=== PATIENT | female | born 1970 | race Caucasian/White ===

== ENCOUNTER 2017-10-06 17:51 | Emergency (ER) | payer SELFPAY ==
--- NOTE | 2017-10-06 17:58 | PDOC ---
History of Present Illness <Keyla Johnson - Last Filed: 10/06/17 18:56> - General History Source: Patient Exam Limitations: No Limitations - History of Present Illness Initial Comments: 10/06/17 20:14 Patient is a 47 year old female with a significant past medical history of Asthma (Related to upper respiratory infections), Fibromyalgia, Herniated disc, who presents to the ED with complaints of increased back pain as well as multiple episodes of vomiting that began 10 yesterday morning. . Patient reports waking up yesterday morning with intense 10/10 back pain as well as nausea. She reports she has experienced 27 episodes of vomiting since yesterday morning with no signs of subsiding. Patient states she tried taking Hydrocodone and Tylenol for back pain with no relief. She reports taking daughters Zofran for nausea and vomiting with minimal relief. Patient states she has been taking care of her daughter with stomach virus since friday morning. Patient reports urinating on herself every time she begins to vomit. Denies chest pain, SOB. Denies fevers, chills. Denies out of state traveling. Denies any other symptoms. Allergies: None Social history: Lives with . Current smoker. No alcohol. No illicit drugs. Surgical history: PMD: None <Ananth Wallace - Last Filed: 10/06/17 20:14> <Elsa Oshea I - Last Filed: 10/07/17 21:51> - General Chief Complaint: Nausea/Vomiting Stated Complaint: VOMITING,BACK PAIN,NAUSEA Time Seen by Provider: 10/06/17 17:58 Past History - Suicide/Smoking/Psychosocial Hx Smoking History: Never smoked Have you smoked in the past 12 months: No Hx Alcohol Use: No Drug/Substance Use Hx: No Substance Use Type: None <Keyla Johnson - Last Filed: 10/06/17 18:56> <Ananth Wallace - Last Filed: 10/06/17 20:14> <Elsa Oshea I - Last Filed: 10/07/17 21:51> - Past Medical History Allergies/Adverse Reactions: Allergies Allergy/AdvReac Type Severity Reaction Status Date / Time No Known Allergies Allergy Verified 10/06/17 18:08 Home Medications: Ambulatory Orders Hydrocodone/Acetaminophen [Hydrocodone-Acetamin 5-325 mg] 0 each PO ASDIR Ondansetron [Zofran Odt -] 4 mg SL TID #12 od.tablet 10/06/17 Review of Systems - Review of Systems Able to Perform ROS?: Yes Comments:: 10/06/17 20:14 GENERAL/CONSTITUTIONAL: No fever or chills. No weakness. HEAD, EYES, EARS, NOSE AND THROAT: No change in vision. No ear pain or discharge. No sore throat. CARDIOVASCULAR: No chest pain or shortness of breath. RESPIRATORY: No cough, wheezing, or hemoptysis. GASTROINTESTINAL: +Nausea. +Vomiting. No diarrhea or constipation. GENITOURINARY: No dysuria, frequency, or change in urination. MUSCULOSKELETAL: +Lower back pain. No joint or muscle swelling or pain. No neck. SKIN: No rash NEUROLOGIC: +headache. No vertigo, loss of consciousness, or change in strength/sensation. ENDOCRINE: No increased thirst. No abnormal weight change. HEMATOLOGIC/LYMPHATIC: No anemia, easy bleeding, or history of blood clots. ALLERGIC/IMMUNOLOGIC: No hives or skin allergy. All Other Systems: Reviewed and Negative <Ananth Wallace - Last Filed: 10/06/17 20:14> *Physical Exam - Vital Signs Last Vital Signs Temp Pulse Resp BP Pulse Ox 99.2 F 98 H 18 121/76 100 10/06/17 17:52 10/06/17 17:52 10/06/17 17:52 10/06/17 17:52 10/06/17 17:52 - Physical Exam Comments: 10/06/17 20:14 GENERAL: +Mild distress. Awake, alert, and fully oriented, HEAD: No signs of trauma EYES: PERRLA, EOMI, sclera anicteric, conjunctiva clear ENT: Auricles normal inspection, hearing grossly normal, nares patent, oropharynx clear without exudates. Moist mucosa NECK: Normal ROM, supple, no lymphadenopathy, JVD, or masses LUNGS: Breath sounds equal, clear to auscultation bilaterally. No wheezes, and no crackles HEART: Regular rate and rhythm, normal S1 and S2, no murmurs, rubs or gallops ABDOMEN: Soft, nontender, normoactive bowel sounds. No guarding, no rebound. No masses BACK: +Paraspinal tenderness in thoracic and lumbar regions with no point tenderness over spine. No CVA tenderness. EXTREMITIES: Normal range of motion, no edema. No clubbing or cyanosis. No cords, erythema, or tenderness NEUROLOGICAL: Cranial nerves II through XII grossly intact. Normal speech, normal gait SKIN: Warm, Dry, normal turgor, no rashes or lesions noted. <Ananth Wallace - Last Filed: 10/06/17 20:14> - Vital Signs Last Vital Signs Temp Pulse Resp BP Pulse Ox 99.2 F 98 H 18 121/76 100 10/06/17 17:52 10/06/17 17:52 10/06/17 17:52 10/06/17 17:52 10/06/17 17:52 <Elsa Oshea I - Last Filed: 10/07/17 21:51> ED Treatment Course - LABORATORY CBC & Chemistry Diagram: 10/06/17 18:40 10/06/17 18:40 <Keyla Johnson - Last Filed: 10/06/17 18:56> - LABORATORY CBC & Chemistry Diagram: 10/06/17 18:40 10/06/17 18:40 - ADDITIONAL ORDERS Additional order review: Laboratory Results 10/06/17 10/06/17 19:50 18:40 Sodium 136 Potassium 3.7 Chloride 102 Carbon Dioxide 24 Anion Gap 10 BUN 19 H Creatinine 0.8 Creat Clearance w eGFR > 60 Random Glucose 98 Calcium 9.2 Total Bilirubin 0.7 D AST 21 ALT 22 D Alkaline Phosphatase 50 Total Protein 6.8 Albumin 4.1 Urine Color Yellow Urine Appearance Clear Urine pH 5.5 Ur Specific Berkley 1.025 Urine Protein Negative Urine Glucose (UA) Negative Urine Ketones 2+ H Urine Blood 1+ H Urine Nitrite Negative Urine Bilirubin Negative Urine Urobilinogen 0.2 Ur Leukocyte Esterase Negative Urine HCG, Qual Negative 10/06/17 18:40 RBC 4.60 MCV 92.9 MCHC 33.6 RDW 11.9 MPV 9.5 D Neutrophils % 88.7 H D Lymphocytes % 5.4 L D Monocytes % 5.3 Eosinophils % 0.4 Basophils % 0.2 - Medications Given in the ED: ED Medications Discontinued Medications Generic Name Dose Route Start Last Admin Trade Name Freq PRN Reason Stop Dose Admin Ketorolac Tromethamine 30 mg 10/06/17 18:42 10/06/17 18:56 Toradol Injection - IVPUSH 10/06/17 18:43 30 mg ONCE ONE Administration Ondansetron HCl 4 mg 10/06/17 18:42 10/06/17 18:56 Zofran Injection IVPUSH 10/06/17 18:43 4 mg ONCE ONE Administration Sodium Chloride 2,000 ml 10/06/17 18:42 10/06/17 18:56 Normal Saline - IV 10/06/17 18:43 2,000 ml ONCE ONE Administration <Ananth Wallace - Last Filed: 10/06/17 20:14> - LABORATORY CBC & Chemistry Diagram: 10/06/17 18:40 10/06/17 18:40 - ADDITIONAL ORDERS Additional order review: 10/06/17 18:40 RBC 4.60 MCV 92.9 MCHC 33.6 RDW 11.9 MPV 9.5 D Neutrophils % 88.7 H D Lymphocytes % 5.4 L D Monocytes % 5.3 Eosinophils % 0.4 Basophils % 0.2 - Medications Given in the ED: ED Medications Discontinued Medications Generic Name Dose Route Start Last Admin Trade Name Freq PRN Reason Stop Dose Admin Hydromorphone HCl 0.5 mg 10/06/17 20:14 10/06/17 20:20 Dilaudid Injection - IVPUSH 10/06/17 20:15 0.5 mg ONCE ONE Administration Sodium Chloride 1,000 mls @ 1,000 mls/hr 10/06/17 19:50 10/06/17 19:52 Normal Saline - IV 10/06/17 20:49 1,000 mls/hr .Q1H ONE Administration Ketorolac Tromethamine 30 mg 10/06/17 18:42 10/06/17 18:56 Toradol Injection - IVPUSH 10/06/17 18:43 30 mg ONCE ONE Administration Ondansetron HCl 4 mg 10/06/17 18:42 10/06/17 18:56 Zofran Injection IVPUSH 10/06/17 18:43 4 mg ONCE ONE Administration Sodium Chloride 2,000 ml 10/06/17 18:42 10/06/17 18:56 Normal Saline - IV 10/06/17 18:43 2,000 ml ONCE ONE Administration <Elsa Oshea I - Last Filed: 10/07/17 21:51> Medical Decision Making - Medical Decision Making 10/06/17 18:56 Pt presents to the ED complaining of nausea, vomiting and back pain that is similar to but worse than her chronic back pain. No red flags for cord compression. Neurologically intact. May be gastronenteritis, but will check labs to rule out biliary disease or electrolyte disturbance, and UA to rule out UTI. Will give pain control, nausea control and IV hydration. WIll reassess. <Keyla Johnson - Last Filed: 10/06/17 18:56> *DC/Admit/Observation/Transfer <Keyla Johnson - Last Filed: 10/06/17 18:56> - Attestations Scribe Attestion: 10/06/17 20:14 Documentation prepared by Ananth Wallace, acting as front office medical assistant for Elsa Oshea MD/DO. <Ananth Wallace - Last Filed: 10/06/17 20:14> - Discharge Dispostion Admit: No <Elsa Oshea I - Last Filed: 10/07/17 21:51> Diagnosis at time of Disposition: Nausea and vomiting Qualifiers: Vomiting type: unspecified Vomiting Intractability: non-intractable Qualified Code(s): R11.2 - Nausea with vomiting, unspecified - Discharge Dispostion Disposition: HOME Condition at time of disposition: Fair - Prescriptions Prescriptions: Ondansetron [Zofran Odt -] 4 mg SL TID #12 od.tablet - Patient Instructions Printed Discharge Instructions: DI for Vomiting -- Adult, Smoking Cessation Additional Instructions: Clear liquids only for the next 6 hours.. After that if you have had no further vomiting you may have bananas, rice, applesauce, or toast. If no further vomiting for another 8 hours you may have regular food. If you vomit again then nothing to eat or drink for 2 hours. then start back with the clear liquids. I have also sent a prescription to her pharmacy for Zofran U can take one tablet as often as 3 times a day for nausea or vomiting. Return to the emergency department immediately with ANY new, persistent or worsening symptoms. Continue any medications as previously prescribed by your physician. You should follow up with your primary doctor as soon as possible regarding today's emergency department visit. . Please make sure your doctor reviews the results of your emergency evaluation. Thank you for coming to the Emergency Department today for your care. It was a pleasure to see you today. Please note that your evaluation is INCOMPLETE until you follow-up with your doctor.
[2017-10-06 18:13] VITALS: BP 121/76; PULSE 98; TEMP 99.2; BMI 22.7
[2017-10-06] MEDS ORDERED: KETOROLAC TROMETHAMINE 30 MG/1 ML VIAL IVPUSH ONE (18:42)
[2017-10-06] MEDS ORDERED: ONDANSETRON 4 MG/2 ML VIAL IVPUSH ONE (18:42)
[2017-10-06] MEDS ORDERED: SODIUM CHLORIDE 0.9% 1000 ML INFUS.BAG IV ONE (18:42)
[2017-10-06] MEDS ORDERED: KETOROLAC TROMETHAMINE 30 MG/1 ML VIAL ONE (18:48)
[2017-10-06] MEDS ORDERED: ONDANSETRON 4 MG/2 ML VIAL ONE (18:48)
[2017-10-06 19:06] LABS: BASO % 0.2 % (0-2.0); EOS % 0.4 % (0-4.5); HEMATOCRIT 42.7 % (32.4-45.2); HEMOGLOBIN 14.4 GM/dl (10.7-15.3); LYMPH % 5.4 % (8-40); MCH 31.2 pg (25.7-33.7); MCHC 33.6 g/dl (32.0-36.0); MEAN CELL VOLUME 92.9 fl (80-96); MEAN PLT VOLUME 9.5 fl (7.5-11.1); MONO % 5.3 % (3.8-10.2); NEUT % 88.7 % (42.8-82.8); PLATELET COUNT 242 K/MM3 (134-434); RDW 11.9 % (11.6-15.6); WHITE BLOOD COUNT 8.7 K/mm3 (4.0-10.8)
[2017-10-06 19:14] LABS: ALBUMIN 4.1 g/dl (3.5-5.0); ALK PHOS 50 U/L (32-92); ANION GAP 10 (8-16); BILIRUBIN,TOTAL 0.7 mg/dl (0.2-1.0); BLOOD UREA NITROGEN 19 mg/dl (7-18); CALCIUM 9.2 mg/dl (8.4-10.2); CHLORIDE 102 mmol/L (98-107); CO2 24 mmol/L (22-28); CREATININE 0.8 mg/dl (0.6-1.3); GLUCOSE,RANDOM 98 mg/dl (74-106); POTASSIUM 3.7 mmol/L (3.5-5.1); SGOT/AST 21 U/L (10-42); SGPT/ALT 22 U/L (10-40); SODIUM 136 mmol/L (136-145); TOT PROT 6.8 g/dl (6.4-8.3)
--- NOTE | 2017-10-06 19:19 | PDOC ---
*Physical Exam - Vital Signs Last Vital Signs Temp Pulse Resp BP Pulse Ox 99.2 F 98 H 18 121/76 100 10/06/17 17:52 10/06/17 17:52 10/06/17 17:52 10/06/17 17:52 10/06/17 17:52 ED Treatment Course - LABORATORY CBC & Chemistry Diagram: 10/06/17 18:40 10/06/17 18:40 - ADDITIONAL ORDERS Additional order review: 10/06/17 18:40 RBC 4.60 MCV 92.9 MCHC 33.6 RDW 11.9 MPV 9.5 D Neutrophils % 88.7 H D Lymphocytes % 5.4 L D Monocytes % 5.3 Eosinophils % 0.4 Basophils % 0.2 - Medications Given in the ED: ED Medications Discontinued Medications Generic Name Dose Route Start Last Admin Trade Name Bayron PRN Reason Stop Dose Admin Ketorolac Tromethamine 30 mg 10/06/17 18:42 10/06/17 18:56 Toradol Injection - IVPUSH 10/06/17 18:43 30 mg ONCE ONE Administration Ondansetron HCl 4 mg 10/06/17 18:42 10/06/17 18:56 Zofran Injection IVPUSH 10/06/17 18:43 4 mg ONCE ONE Administration Sodium Chloride 2,000 ml 10/06/17 18:42 10/06/17 18:56 Normal Saline - IV 10/06/17 18:43 2,000 ml ONCE ONE Administration Progress Note - Progress Note Progress Note: Care of this patient was transferred to [place] from Dr. Johnson at 1900 hrs. Patient is a 47-year-old female who has a history of chronic back pain for which she takes opioids. Patient daughter had a recent GI nausea and vomiting illness most likely secondary to the normal virus that is very prevalent in the community at this time. Patient now comes in complaining of similar symptoms with nausea and vomiting. Patient vomited her pain medications so is also complaining of acute exacerbation of her chronic back pain. Patient was given antiemetics, Toradol, IV fluids by Dr. Johnson. Will reassess, review of the labs that were sent CBC and comp, and give patient a by mouth challenge once she has received adequate hydration. 20:15 Reassessment: Patient is able to tolerate by mouth's, patient has had almost 3 L of fluid feels much better no further vomiting. On review of patient's labs patient's labs are essentially normal she has a normal white count and chemistries are unremarkable. Patient complaining of back pain still so given half a milligram of Dilaudid IV prior to discharge. Patient discharged home accompanied home by her family. *DC/Admit/Observation/Transfer Diagnosis at time of Disposition: Nausea and vomiting Qualifiers: Vomiting type: unspecified Vomiting Intractability: non-intractable Qualified Code(s): R11.2 - Nausea with vomiting, unspecified - Discharge Dispostion Disposition: HOME Condition at time of disposition: Fair Admit: No - Prescriptions Prescriptions: Ondansetron [Zofran Odt -] 4 mg SL TID #12 od.tablet - Referrals - Patient Instructions Printed Discharge Instructions: Smoking Cessation, DI for Vomiting -- Adult Additional Instructions: Clear liquids only for the next 6 hours.. After that if you have had no further vomiting you may have bananas, rice, applesauce, or toast. If no further vomiting for another 8 hours you may have regular food. If you vomit again then nothing to eat or drink for 2 hours. then start back with the clear liquids. I have also sent a prescription to her pharmacy for Zofran U can take one tablet as often as 3 times a day for nausea or vomiting. Return to the emergency department immediately with ANY new, persistent or worsening symptoms. Continue any medications as previously prescribed by your physician. You should follow up with your primary doctor as soon as possible regarding today's emergency department visit. . Please make sure your doctor reviews the results of your emergency evaluation. Thank you for coming to the Emergency Department today for your care. It was a pleasure to see you today. Please note that your evaluation is INCOMPLETE until you follow-up with your doctor. - Post Discharge Activity
[2017-10-06] MEDS ORDERED: SODIUM CHLORIDE 1,000 ML IV ONE (19:50)
[2017-10-06 19:59] LABS: PH,URINE 5.5 (4.5-8); URINE APPEARANCE Clear; URINE BILIRUBIN Negative (NEGATIVE); URINE GLUCOSE (UA) Negative (NEGATIVE); URINE KETONE 2+ (NEGATIVE); URINE NITRITE Negative (NEGATIVE); URINE PROTEIN Negative (NEGATIVE); URINE UROBILINOGEN 0.2 (0.2-1.0)
[2017-10-06 20:00] LABS: URINE BLOOD 1+ (NEGATIVE); URINE COLOR YELLOW
[2017-10-06 20:03] LABS: HCG,QUALITATIVE URINE NEGATIVE
[2017-10-06] MEDS ORDERED: HYDROmorphone HCL CARPU-JECT 1 MG/1 ML DISP.SYRIN IVPUSH ONE (20:14)
[2017-10-06] MEDS ORDERED: HYDROmorphone HCL CARPU-JECT 1 MG/1 ML DISP.SYRIN ONE (20:15)
[2017-10-06 20:44] LABS: EPI CELLS FEW /HPF; URINE BACTERIA FEW /hpf (NEGATIVE); URINE WBC 0-2 (0-5)
== END 2017-10-06 20:25 | disposition home or self-care (01) ==
LOC: FER 17:51
PROC: 3E033NZ Introduction of Analgesics, Hypnotics, Sedatives into Peripheral Vein, Percutaneous Approach (ICD-10-PCS; principal; 2017-10-06)
PROC: 3E0333Z Introduction of Anti-inflammatory into Peripheral Vein, Percutaneous Approach (ICD-10-PCS; 2017-10-06)
PROC: 3E033GC Introduction of Other Therapeutic Substance into Peripheral Vein, Percutaneous Approach (ICD-10-PCS; 2017-10-06)
PROC: 3E0337Z Introduction of Electrolytic and Water Balance Substance into Peripheral Vein, Percutaneous Approach (ICD-10-PCS; 2017-10-06)
DX: R11.2 Nausea with vomiting, unspecified (principal); J45.909 Unspecified asthma, uncomplicated
CPT/HCPCS: 36415; 80053; 81003; 81015; 84703; 85025; 99282-25

== ENCOUNTER 2017-10-08 08:52 | Emergency (ER) | payer SELFPAY ==
[2017-10-08] MEDS ORDERED: SODIUM CHLORIDE 1,000 ML IV STA (09:16)
[2017-10-08] MEDS ORDERED: ONDANSETRON 4 MG/2 ML VIAL IVPB ONE (09:16)
--- NOTE | 2017-10-08 09:16 | PDOC ---
History of Present Illness - General Chief Complaint: Nausea/Vomiting Stated Complaint: VOMITING Time Seen by Provider: 10/08/17 09:14 - History of Present Illness Initial Comments: 10/08/17 10:18 Chief complaint: Patient states she has had intractable nausea and vomiting since Friday. History of present illness: She has been unable to hold down food or fluids. She has been unable to take her narcotic, 15 mg oxycodone 4 times a day for chronic back pain, and her primary physician thought that she might be suffering from withdrawals. Review of systems: Initially had diarrhea, but this has resolved. No fever/ chills, headache, URI symptoms, sore throat, cough, chest pain, shortness of breath, abdominal pain, visual or focal neurologic symptoms, unsteadiness of gait. Menses regular, no missed menses, no vaginal bleeding or discharge at present. Remainder systems reviewed and found to be negative. Past medical history: Chronic narcotic dependence for back pain, no back injury , thought due to wear and tear. Otherwise noncontributory Social/family history reviewed and noncontributory. Physical exam: Alert and oriented 3, well-developed well-nourished, no acute distress, cooperative Afebrile, vital signs normal except for mild tachycardia 105/m No pallor or icterus. PERRLA 3 mm, fundi benign, ENT clear Neck supple without bruit mass or nodes Lungs clear CV regular without murmur rub or gallop Abdomen soft nontender without mass or organomegaly. Bowel sounds normal. Nondistended Neurological C2 to 12 intact. Strength full and symmetric. No focal deficits. Gait stable and unimpaired Extremities no CCE Skin clear, no rash, adequate turgor and wet mucous membranes Impression: Persistent viral gastroenteritis versus narcotic withdrawal. Plan: Discussed case with primary physician, Dr. Nathan. Alternative medication for nausea will be tried, since Zofran appears to be ineffective. Supplement for several opioid withdrawal. Dr. Nathan will send supplementary prescription for Percocet to the pharmacy. Patient will follow-up with her primary physician Past History - Past Medical History Allergies/Adverse Reactions: Allergies Allergy/AdvReac Type Severity Reaction Status Date / Time No Known Allergies Allergy Verified 10/08/17 08:53 Home Medications: Ambulatory Orders Hydrocodone/Acetaminophen [Hydrocodone-Acetamin 5-325 mg] 0 each PO ASDIR Ondansetron [Zofran Odt -] 4 mg SL TID #12 od.tablet 10/06/17 Prochlorperazine Suppository [Compazine] 25 mg RC TID PRN #10 supp.rect COPD: No - Suicide/Smoking/Psychosocial Hx Smoking History: Never smoked Have you smoked in the past 12 months: No Number of Cigarettes Smoked Daily: 1 Hx Alcohol Use: No Drug/Substance Use Hx: No Substance Use Type: None ED Treatment Course - LABORATORY CBC & Chemistry Diagram: 10/08/17 09:22 10/08/17 09:22 Medical Decision Making - Medical Decision Making 10/08/17 10:47 Labs without significant abnormalities except for urinalysis, which again shows blood. This has been present on prior examinations. Follow-up with urologist was recommended. The patient and her were appraised of the need to determine if possible the cause of hematuria to avoid failure to diagnose a severe or life-threatening kidney or urinary tract problem. 10/08/17 10:49 10/08/17 13:11 Patient appears to be much improved. There has been no further retching or vomiting. No bowel movements. Abdomen remains soft and nontender. She is tolerating by mouth fluids. Ambulatory and in no pain or other distress upon discharge with her to follow-up with her PCP. *DC/Admit/Observation/Transfer Diagnosis at time of Disposition: Nausea and vomiting Qualifiers: Vomiting type: unspecified Vomiting Intractability: non-intractable Qualified Code(s): R11.2 - Nausea with vomiting, unspecified - Discharge Dispostion Disposition: HOME Condition at time of disposition: Improved Admit: No - Prescriptions Prescriptions: Prochlorperazine Suppository [Compazine] 25 mg RC TID PRN #10 supp.rect PRN Reason: Nausea And/Or Vomiting - Referrals Referrals: Sam Matson MD., MD [Staff Physician] - 1 week - Patient Instructions Printed Discharge Instructions: DI for Nausea -- Adult, DI for Vomiting -- Adult, High-Potassium Diet Additional Instructions: See Dr. Nathan for further evaluation and treatment. He has sent some supplementary medication to your pharmacy. Be sure to supplement potassium in your diet for the next few days. This should be done with potassium-rich foods and fluids. Urinalysis again demonstrated small amounts of blood. This is likely not serious , however, and rare instances it could be the sign of serious or life- threatening kidney or urinary tract disease. It is strongly recommended that you consult a urologist for further evaluation and treatment to make sure there is no dangerous kidney abnormality. - Post Discharge Activity
[2017-10-08 09:24] LABS: PH,URINE 5.5 (4.5-8); URINE APPEARANCE Clear; URINE BILIRUBIN 1+ (NEGATIVE); URINE GLUCOSE (UA) Negative (NEGATIVE); URINE KETONE 3+ (NEGATIVE); URINE NITRITE Negative (NEGATIVE); URINE PROTEIN Negative (NEGATIVE)
[2017-10-08 09:32] VITALS: BP 107/65; TEMP 98.4; BMI 22.0
[2017-10-08] MEDS ORDERED: ONDANSETRON 4 MG/2 ML VIAL ONE (09:34)
[2017-10-08 09:35] LABS: HCG,QUALITATIVE URINE NEGATIVE
[2017-10-08 09:36] LABS: URINE BLOOD 2+ (NEGATIVE); URINE COLOR YELLOW
[2017-10-08] MEDS ORDERED: PROCHLORPERAZINE INJECTION 10 MG/2 ML VIAL IVPB ONE (09:37)
[2017-10-08] MEDS ORDERED: HYDROmorphone HCL CARPU-JECT 1 MG/1 ML DISP.SYRIN IVPB ONE (09:42)
[2017-10-08] MEDS ORDERED: HYDROmorphone HCL CARPU-JECT 1 MG/1 ML DISP.SYRIN ONE (09:45)
[2017-10-08] MEDS ORDERED: PROCHLORPERAZINE INJECTION 10 MG/2 ML VIAL ONE (09:45)
[2017-10-08 09:56] LABS: BASO % 0.1 % (0-2.0); EOS % 0.2 % (0-4.5); HEMATOCRIT 37.4 % (32.4-45.2); HEMOGLOBIN 12.6 GM/dl (10.7-15.3); LYMPH % 9.8 % (8-40); MCH 31.2 pg (25.7-33.7); MCHC 33.7 g/dl (32.0-36.0); MEAN CELL VOLUME 92.8 fl (80-96); MEAN PLT VOLUME 9.7 fl (7.5-11.1); MONO % 7.2 % (3.8-10.2); NEUT % 82.7 % (42.8-82.8); PLATELET COUNT 217 K/MM3 (134-434); RBC 4.03 M/mm3 (3.60-5.2); RDW 11.9 % (11.6-15.6); WHITE BLOOD COUNT 7.2 K/mm3 (4.0-10.8)
[2017-10-08 10:05] LABS: ALBUMIN 3.6 g/dl (3.5-5.0); ALK PHOS 40 U/L (32-92); ANION GAP 8 (8-16); BILIRUBIN,TOTAL 0.4 mg/dl (0.2-1.0); BLOOD UREA NITROGEN 12 mg/dl (7-18); CALCIUM 8.7 mg/dl (8.4-10.2); CHLORIDE 103 mmol/L (98-107); CO2 25 mmol/L (22-28); CREATININE 0.7 mg/dl (0.6-1.3); GLUCOSE,RANDOM 110 mg/dl (74-106); POTASSIUM 3.3 mmol/L (3.5-5.1); SGOT/AST 22 U/L (10-42); SGPT/ALT 20 U/L (10-40); SODIUM 136 mmol/L (136-145)
[2017-10-08 10:08] LABS: EPI CELLS MODERATE /HPF; URINE BACTERIA FEW /hpf (NEGATIVE)
[2017-10-08 10:09] LABS: URINE MUCUS 1+
[2017-10-08 10:18] LABS: LIPASE < 20 U/L (22-51)
[2017-10-08] MEDS ORDERED: KCL 10 MEQ IVPB 10 MEQ/100 ML INFUS.BAG IVPB SCH (10:30)
[2017-10-08] MEDS ORDERED: KCL 10 MEQ IVPB 10 MEQ/100 ML INFUS.BAG IVPB ONE (10:32)
[2017-10-08 13:01] VITALS: PULSE 78
== END 2017-10-08 13:03 | disposition home or self-care (01) ==
LOC: FER 08:52
PROC: 3E033GC Introduction of Other Therapeutic Substance into Peripheral Vein, Percutaneous Approach (ICD-10-PCS; principal; 2017-10-08)
PROC: 3E0337Z Introduction of Electrolytic and Water Balance Substance into Peripheral Vein, Percutaneous Approach (ICD-10-PCS; 2017-10-08)
PROC: 3E033NZ Introduction of Analgesics, Hypnotics, Sedatives into Peripheral Vein, Percutaneous Approach (ICD-10-PCS; 2017-10-08)
DX: R11.2 Nausea with vomiting, unspecified (principal)
CPT/HCPCS: 36415; 80053; 81003; 81015; 83690; 84703; 85025; 99283-25